=== PATIENT | female | born 1965 | race Two or more races ===

== ENCOUNTER 2020-01-17 08:05 | Emergency (ER) | payer MEDICAID, OTHER ==
[~2020-01-17] VITALS: Ht 162.6 cm; Wt 82.0 kg
[2020-01-17] MEDS ORDERED: SODIUM CHLORIDE 0.9% 1,000 ML IV ONE (08:39)
[2020-01-17] MEDS ORDERED: ONDANSETRON HCL 4MG/2ML INJ IV STA (08:39)
[2020-01-17 08:51] LABS: BASOPHILS % 0.5 % (0.0-2.0); EOSINOPHILS % 0.5 % (0.0-5.0); HEMATOCRIT. 42.5 % (36.0-48.0); HEMOGLOBIN. 14.6 g/dL (12.0-16.0); LYMPHOCYTES % 24.6 % (20.0-50.0); MEAN CORPUSCULAR HEMOGLOBIN 32.1 pg (28.0-32.0); MEAN CORPUSCULAR VOLUME 93.6 fL (81.0-99.0); MEAN PLATELET VOLUME 7.3 fl (7.4-10.4); MONOCYTES % 6.7 % (2.0-8.0); NEUTROPHILS % 67.7 % (40.0-76.0); PLATELET 312 x1000/uL (130-400); RED BLOOD CELL COUNT 4.54 mill/uL (4.2-5.4); RED CELL DISTRIBUTION WIDTH 15.4 % (11.6-14.6)
[2020-01-17 08:56] LABS: CHLORIDE 108 mEq/L (98-107)
[2020-01-17 09:00] LABS: PROTHROMBIN TIME 10.9 sec (9.6-11.0)
[2020-01-17] MEDS ORDERED: KETOROLAC 15MG/ML VIAL IV ONE (09:15)
[2020-01-17 09:29] LABS: CLARITY URINE CLEAR (CLEAR); COLOR URINE YELLOW (YELLOW); KETONES URINE NEGATIVE (NEGATIVE); LEUKOCYTE ESTERASE URINE NEGATIVE (NEGATIVE); NITRITE URINE NEGATIVE (NEGATIVE); OCCULT BLOOD URINE NEGATIVE (NEGATIVE); PROTEIN URINE NEGATIVE (NEGATIVE); SPECIFIC GRAVITY URINE 1.008 (1.005-1.030); UROBILINOGEN URINE 0.2 E.U./dL (0.2-1.0)
[2020-01-17] MEDS ORDERED: MECLIZINE 25MG TABLET PO ONE (10:00)
[2020-01-17 10:16] VITALS: BP 123/63
== END 2020-01-17 10:54 | disposition home or self-care (01) ==
LOC: ER 08:05
DX: R42 Dizziness and giddiness (principal); R51 Headache; R11.0 Nausea; E78.00 Pure hypercholesterolemia, unspecified; Z90.710 Acquired absence of both cervix and uterus
CPT/HCPCS: 36415; 70450; 80053; 81003; 85025; 85610; 93005; 96361; 96374; 96375; 99285; J1885; J2405; J7030; J8597